=== PATIENT | male | born 1970 | race Caucasian/White ===

== ENCOUNTER 2016-08-22 18:03 | Inpatient (IN) | payer OTHER ==
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
--- NOTE | ~2016-08-22 | PN ---
Unit #: [id number] #: [id number] Patient: PALOMA ROMERO [id number] [facility] [address] [place] [address] [id number] I MR#: [id number] NAME: PALOMA ROMERO ROOM: P204 Age: 46 Sex: M Admission Date: 08/22/2016 : 1970 Attending Physician: Radha Benitez M.D. Admitting Physician: Radha Benitez M.D. Primary Care Physician: Ce Flood PROGRESS NOTES DATE August 25, 2016 DISCUSSION Mr. Romero is a 46-year-old white male, who was seen today and chart was reviewed and the case was discussed with the staff. He has been anxious, withdrawn, and rather seclusive to himself. Meanwhile, he has been cooperative with the treatment recommendations and he has been taking the medications and tolerating them fairly well with no reported side effects. MENTAL STATUS EXAMINATION Middle-aged white male, who was casually dressed with fair personal hygiene and appears to be in no acute distress or discomfort. The patient was awake and alert on interaction with intact orientation. His mood is anxious with a congruent affect. His speech is slow and goal-directed. He denies any suicidal or homicidal ideations. His insight and judgment remain significantly impaired. TREATMENT PLAN 1. We will continue him on his current medications and treatment protocol, and will monitor his response to the medications, and make further adjustments as needed. 2. We will continue to followup. Dictated by... Ce Corbett/carlos TD: 08/27/2016 07:43 JOB #: [id number] Unit #: [id number] #: [id number] Patient: PALOMA ROMERO PROGRESS NOTES X aRdha Benitez MD PROGRESS NOTE
--- NOTE | ~2016-08-22 | CO ---
Unit #: [id number] #: [id number] Patient: PALOMA ROMERO [id number] [facility] [address] [place] [address] [id number] MR#: [id number] NAME: PALOMA ROMERO ROOM: 74 Age: 46 Sex: M Admission Date: 08/22/2016 : 1970 Attending Physician: Radha Benitez M.D. Primary Care Physician: Jaime Watkins M.D. Consultation Date: 08/23/2016 CONSULTATION REPORT CRISTINO Harrsi is a 46-year-old with history of diabetes mellitus. Home medications include Glucophage 1000 mg b.i.d. and Glucotrol XL 10 mg b.i.d. We will continue both of these home medications and provide a constant carb diet. Dictated by... Candy Reyes P.A.-C. for Ce Agrawal/silvia TD: 08/25/2016 13:17 JOB #: [id number] CONSULTATION REPORT X Candy Reyes CONSULTATION REPORT
--- NOTE | ~2016-08-22 | PN ---
Unit #: [id number] #: [id number] Patient: PALOMA ROMERO [id number] [facility] [address] [place] [address] [id number] I MR#: [id number] NAME: PALOMA ROMERO ROOM: P204 Age: 46 Sex: M Admission Date: 08/22/2016 : 1970 Attending Physician: Radha Benitez M.D. Admitting Physician: Radha Benitez M.D. Primary Care Physician: Ce Flood PROGRESS NOTES DATE August 29, 2016 DISCUSSION Mr. Romero is a 46-year-old white male, who was seen today and chart was reviewed and the case was discussed with the staff. He has been anxious, withdrawn, but has not shown any agitation or irritability or behavioral problems and he has been cooperative with the treatment recommendations. He has been taking the medications and tolerating them fairly well with no reported side effects. MENTAL STATUS EXAMINATION Middle-aged white male, who was casually dressed with fair personal hygiene and appears to be in no acute distress or discomfort. He was awake and alert on interaction with intact orientation. His mood is anxious with a congruent affect. His speech is slow and goal-directed. He denies any suicidal or homicidal ideations, and also denies any auditory or visual hallucinations. His insight and judgment remain slightly impaired. TREATMENT PLAN We will continue him on his current medications and treatment protocol, and will monitor his response, and make further adjustments as needed. Dictated by... Ce Corbett/carlos TD: 08/30/2016 12:19 JOB #: [id number] Unit #: [id number] #: [id number] Patient: PALOMA ROMERO PROGRESS NOTES X Radha Benitez MD PROGRESS NOTE
--- NOTE | ~2016-08-22 | PN ---
Unit #: [id number] #: [id number] Patient: PALOMA ROMERO [id number] [facility] [address] [place] [address] [id number] I MR#: [id number] NAME: PALOMA ROMERO ROOM: P204 Age: 46 Sex: M Admission Date: 08/22/2016 : 1970 Attending Physician: Radha Benitez M.D. Admitting Physician: Radha Benitez M.D. Primary Care Physician: Ce Flood PROGRESS NOTES DATE August 28, 2016 DISCUSSION Mr. Romero is a 46-year-old white male, who was seen today and chart was reviewed and the case was discussed with the staff. He has been anxious, withdrawn, and rather seclusive to himself, and has been irritable and impulsive, and has been exhibiting bizarre behavior. Meanwhile, he has been taking the medications and tolerating them fairly well with no reported side effects. MENTAL STATUS EXAMINATION Middle-aged white male, who was casually dressed with fair personal hygiene and appears to be in no acute distress or discomfort. He was awake and alert with impaired attention and concentration. His mood is anxious with a congruent affect. His speech is slow and restricted in content. He denies any suicidal or homicidal ideations. His insight and judgment remain slightly impaired. TREATMENT PLAN 1. We will continue him on his current medications and treatment protocol, and will monitor his response to the medications, and make further adjustments as needed. 2. We will continue to followup. Dictated by... Ce Corbett/carlos TD: 08/29/2016 12:15 JOB #: [id number] Unit #: [id number] #: [id number] Patient: PALOMA ROMERO PROGRESS NOTES X Radha Benitez MD PROGRESS NOTE
--- NOTE | ~2016-08-22 | PN ---
Unit #: [id number] #: [id number] Patient: PALOMA ROMERO [id number] [facility] [address] [place] [address] [id number] I MR#: [id number] NAME: PALOMA ROMERO ROOM: 74 Age: 46 Sex: M Admission Date: 08/22/2016 : 1970 Attending Physician: Radha Benitez M.D. Admitting Physician: Radha Benitez M.D. Primary Care Physician: Ce Flood PROGRESS NOTES DATE 08/24/2016 DISCUSSION Mr. Romero is a 46-year-old white male who was seen today and chart was reviewed and case was discussed with the staff. He has been anxious, withdrawn and rather seclusive to himself. Meanwhile, he has been compliant with treatment recommendations and reports that he is wanting to go to long-term rehabilitation level of care. MENTAL STATUS EXAMINATION Middle-aged white male who was casually dressed with fair personal hygiene and appears to be in no acute distress or discomfort. He was awake and alert on interaction with intact orientation. His mood was anxious with congruent affect. He denies any suicidal or homicidal ideations and also denies any auditory or visual hallucinations. His insight and judgement remains slightly impaired. TREATMENT PLAN Will continue his current medications and treatment protocol. Will monitor his response to the medications and make further adjustments as needed. Dictated by... Ce Corbett/mendy TD: 08/24/2016 15:56 JOB #: [id number] LESLY PROGRESS NOTES X Radha Benitez MD PROGRESS NOTE
--- NOTE | ~2016-08-22 | HP ---
Unit #: [id number] #: [id number] Patient: STEVEN ROMERO [id number] [facility] [address] [place] [address] [id number] I MR#: [id number] NAME: STEVEN ROMERO ROOM: P174 Age: 46 Sex: M Admission Date: 08/22/2016 : 1970 Attending Physician: Radha Benitez M.D. Admitting Physician: Radha Benitez M.D. Primary Care Physician: Jaime Watkins M.D. HISTORY AND PHYSICAL Steven is a 46 year old admitted to [facility] with psychotic behavior. He was just discharged from this facility. The patient was seen and H and P dated 08/04/16 was reviewed. This is current. No changes. Please see H and P dated 08/04/16. Dictated by... Candy Reyes P.A.-C. for Ce Agrawal/mendy TD: 08/23/2016 18:33 JOB #: [id number] HISTORY AND PHYSICAL X Candy Reyes HISTORY AND PHYSICAL
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
--- NOTE | ~2016-08-22 | PN ---
Unit #: [id number] #: [id number] Patient: PALOMA ROMERO [id number] [facility] [address] [place] [address] [id number] I MR#: [id number] NAME: PALOMA ROMERO ROOM: P204 Age: 46 Sex: M Admission Date: 08/22/2016 : 1970 Attending Physician: Radha Benitez M.D. Admitting Physician: Radha Benitez M.D. Primary Care Physician: Ce Flood PROGRESS NOTES DATE OF SERVICE: 08/27/2016 SUBJECTIVE Mr. Romero is a 46-year-old white male, who was seen today and chart was reviewed and the case was discussed with the staff. He has been anxious, withdrawn, but has not shown any agitation or irritability, has been cooperative with the treatment recommendations and has been taking the medications, though has been exhibiting very bizarre behavior with significant paranoia, delusional behavior, and poor frustration tolerance. MENTAL STATUS EXAMINATION Middle-aged white male, who was casually dressed with a fair personal hygiene, appears to be in no acute distress or discomfort. He was awake and alert on interaction with intact orientation. His mood was anxious with congruent affect. His speech is slow and restricted. Thought process having some visual hallucination. Had flight of ideas and paranoid ideation and delusional behavior ideation. His insight and judgment remain significantly impaired. TREATMENT PLAN 1. We will continue him on his current medications and treatment protocol. We will monitor his response to the medications and make further adjustments as needed. 2. We will continue to follow up. Dictated by... Ce Corbett/silvia TD: 08/28/2016 05:26 JOB #: [id number] Unit #: [id number] #: [id number] Patient: PALOMA ROMERO PROGRESS NOTES Page 1 of 1 X Radha Benitez MD PROGRESS NOTE
--- NOTE | ~2016-08-22 | DS ---
Unit #: [id number] #: [id number] [facility]: [facility] [id number] [facility] [address] [place] [address] [id number] I MR#: [id number] NAME: PALOMA ROMERO ROOM: P204 Age: 46 Sex: M Admission Date: 08/22/2016 : 1970 Discharge Date: 08/30/2016 Attending Physician: Radha Benitez M.D. Primary Care Physician: Jaime Watkins M.D. DISCHARGE SUMMARY IDENTIFYING DATA Mr. Romero is a 46-year-old single white male who is a resident of [place], [place] and was brought to the hospital by [facility] [employer]. DISCHARGE DIAGNOSES Psychiatric: Major depressive disorder, recurrent, moderate, without psychotic features; alcohol dependence, moderate and acute withdrawals; opioid dependence, moderate and acute withdrawals; methamphetamine dependence, moderate. Medical: Hypertension, diabetes mellitus. Stressors: Moderate psychosocial stressors. HISTORY OF PRESENT ILLNESS Please see initial psychiatric evaluation for details. PAST PSYCHIATRIC HISTORY Please see initial psychiatric evaluation for details. PAST MEDICAL HISTORY Please see initial psychiatric evaluation for details. HOSPITAL COURSE The patient was admitted to the adult chemical dependency unit at [facility] and was oriented to the hospital environment. Routine p.r.n. medications were initiated, and he was started back on his home medications and detox protocol was initiated. He was started on medications, was placed for suicidal thoughts and was wanting to go to a long-term chemical dependency rehab level of care and the delinquency prevention social worker made refill, he was not accepted by any of the places and as such, it was decided that he will be discharged home and recommended ongoing outpatient chemical dependency rehabilitation level of care. DISCHARGE MEDICATIONS Prozac 20 mg a day for depression, Seroquel 200 mg at bedtime and 50 mg b.i.d. for mood disorder, and Wellbutrin XL 150 mg in the morning for depression. DISCHARGE CONDITION Stable. PROGNOSIS Fair. Unit #: [id number] #: [id number] Patient: PALOMA ROMERO Dictated by... Radha Benitez M.D. IAA/modl TD: 08/30/2016 06:59 JOB #: [id number] DISCHARGE SUMMARY X Radha Benitez MD DISCHARGE SUMMARY
[2016-08-24 10:22] LABS: AMPHETAMINE POS (NEG); BARBITURATES NEG (NEG); BENZODIAZEPINES POS (NEG); COCAINE NEG (NEG); MARIJUANA POS (NEG); OPIATES NEG (NEG); TRICYCLIC ANTIDEPRESSANTS POS (NEG); U METHADONE NEG (NEG)
== END 2016-08-30 13:30 | DRG 885 ==
LOC: P1E 18:03 → P2S 08-25 21:18
PROVIDERS: Psychiatry & Neurology Psychiatry
PROC: HZ2ZZZZ Detoxification Services for Substance Abuse Treatment (ICD-10-PCS; principal; 2016-08-22)
DX: F33.1 Major depressive disorder, recurrent, moderate (principal); F15.20 Other stimulant dependence, uncomplicated; I10 Essential (primary) hypertension; F10.239 Alcohol dependence with withdrawal, unspecified; F11.23 Opioid dependence with withdrawal; E11.9 Type 2 diabetes mellitus without complications; Z79.84 Long term (current) use of oral hypoglycemic drugs
CPT/HCPCS: 80307; 82947

== ENCOUNTER 2016-09-02 19:10 | Inpatient (IN) | payer OTHER ==
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
--- NOTE | ~2016-09-02 | PN ---
Unit #: [id number] #: [id number] Patient: PALOMA ROMERO [id number] [facility] [address] [place] [address] [id number] I MR#: [id number] NAME: PALOMA ROMERO ROOM: [facility] Age: 46 Sex: M Admission Date: 09/02/2016 : 1970 Attending Physician: Radha Benitez M.D. Admitting Physician: Radha Benitez M.D. Primary Care Physician: Ce Flood PROGRESS NOTES DATE OF SERVICE: 09/04/2016 SUBJECTIVE Mr. Romero is a 46-year-old white male who was seen today and chart was reviewed, and case was discussed with the staff. He reports doing fairly well and has been showing improvement in his depression and anxiety, and appears to be having a better day today. He has been taking medications and tolerating them fairly well. MENTAL STATUS EXAMINATION Middle-aged white male who was casually dressed with a fair personal hygiene, appears to be in no acute distress or discomfort. He was awake and alert on interaction with intact orientation. His mood was anxious with a congruent affect. He denies any suicidal or homicidal ideations, and also denies any auditory or visual hallucinations. His insight and judgment remain slightly impaired. TREATMENT PLAN We will continue him on his current medications and treatment protocol. We will monitor his response to the medications and make further adjustments as needed. Dictated by... Ce Corbett/silvia TD: 09/06/2016 07:41 JOB #: [id number] [facility] PROGRESS NOTES X Radha Benitez MD PROGRESS NOTE
--- NOTE | ~2016-09-02 | HP ---
Unit #: [id number] #: [id number] Patient: STEVEN ROMERO [id number] [place] [address] [id number] I MR#: [id number] NAME: STEVEN ROMERO ROOM: P265 Age: 46 Sex: M Admission Date: 09/02/2016 : 1970 Attending Physician: Radha Benitez M.D. Admitting Physician: Radha Benitez M.D. Primary Care Physician: Jaime Watkins M.D. HISTORY AND PHYSICAL HISTORY OF PRESENT ILLNESS Steven is a 46 year old admitted to [address] [place] [address] with psychotic behavior. He has other admissions to this facility. PAST MEDICAL HISTORY 1. High blood pressure 2. Diabetes mellitus PAST SURGICAL HISTORY Oral ALLERGIES No known drug allergies. SOCIAL HISTORY He denies cigarettes and alcohol. Admits to using cocaine on occasion. FAMILY HISTORY Medically noncontributory. REVIEW OF SYSTEMS CONSTITUTIONAL: No fever or chills. HEENT: Denies any sore throat, ear pain or runny nose. CARDIOVASCULAR: Denies chest pain, irregular heart rhythm or palpitations. CHEST: Denies shortness of breath or cough. No hemoptysis. GASTROINTESTINAL: Denies nausea, vomiting, diarrhea or chronic constipation. ENDOCRINE: Denies history of increased thirst or urination. No recent significant weight loss or gain. GENITOURINARY: Denies dysuria, frequency, or hematuria. SKIN: Denies any rashes. HEMATOLOGIC: Denies history of increased bleeding or bruising. MUSCULOSKELETAL: Denies any hot, swollen joints. No generalized muscle pain. NEUROLOGIC: Denies problems with vision or speech. No frequent, severe headaches. No numbness, tingling or weakness in any extremities. Denies loss of bladder or bowel control. CURRENT MEDICATIONS 1. Milk of Magnesia p.r.n. 2. Maalox p.r.n. 3. Tylenol p.r.n. Unit #: [id number] #: [id number] Patient: STEVEN ROMERO 4. Seroquel 200 mg q.h.s. 5. Neurontin 800 mg t.i.d. 6. Glucotrol 10 mg b.i.d. 7. Norvasc 10 mg daily 8. Wellbutrin XL 150 mg daily 9. Seroquel 50 mg b.i.d. 10. Prozac 20 mg daily PHYSICAL EXAMINATION GENERAL: Alert, well-nourished, in no apparent distress. VITAL SIGNS: Blood pressure 138/82, heart rate 100, respirations 16, temperature 98.6. WEIGHT: 157 pounds. HEIGHT: 5'8". SKIN: Warm and dry without rash or lesion. HEENT: Normocephalic. TMs not viewed. Oral and nasal passages clear. Conjunctivae clear. Pupils equal, round and reactive to light and accommodation. Extraocular movements intact. NECK: Supple without lymphadenopathy or thyromegaly. HEART: Regular rate and rhythm without murmur. LUNGS: Clear. ABDOMEN: Soft, nontender. : Not done. EXTREMITIES: No evidence of cyanosis, clubbing or edema. Moves all extremities without focal deficit. NEUROLOGICAL: Grossly within normal limits. Cranial Nerves: II: Visual braga are intact. III, IV AND : Extraocular movements are intact. Pupils are equal, round and reactive to light. V: Facial sensation is grossly normal. VII: Facial movements and expression are normal. VIII: Auditory acuity grossly intact. IX, X: Uvula is midline. Phonation is normal. XI: Patient shrugs shoulders and turns head normally. XII: Tongue protrudes in the midline. Sensory and Motor Function: Sensory and motor sensation is grossly normal. Motor: moves all extremities well. Coordination: Gait is normal. Deep Tendon Reflexes: Intact. IMPRESSION Psychiatric admission RECOMMENDATIONS PSYCHIATRIC: Per psychiatrist. MEDICAL: I see no contraindications to participating in facility's activities. MEDICAL PROGNOSIS Good. MEDICAL CONDITION Stable. Dictated by... Candy Reyes P.A.-C. for Unit #: [id number] #: [id number] Patient: STEVEN ROMERO Ce Agrawal/pb TD: 09/03/2016 23:58 JOB #: [id number] HISTORY AND PHYSICAL X Candy Reyes HISTORY AND PHYSICAL
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
== END 2016-09-05 14:00 | DRG 885 ==
LOC: P2L 19:10
PROC: HZ2ZZZZ Detoxification Services for Substance Abuse Treatment (ICD-10-PCS; principal; 2016-09-02)
DX: F33.1 Major depressive disorder, recurrent, moderate (principal); F11.20 Opioid dependence, uncomplicated; I10 Essential (primary) hypertension; F14.20 Cocaine dependence, uncomplicated; F15.20 Other stimulant dependence, uncomplicated; F10.20 Alcohol dependence, uncomplicated; E11.9 Type 2 diabetes mellitus without complications
CPT/HCPCS: 82947

== ENCOUNTER 2016-09-05 21:31 | Inpatient (IN) | payer OTHER ==
--- NOTE | ~2016-09-05 | PN ---
Unit #: [id number] #: [id number] Patient: STEVEN ROMERO [id number] [facility] [address] [place] [address] [id number] I MR#: [id number] NAME: STEVEN ROMERO ROOM: 30 Age: 46 Sex: M Admission Date: 09/05/2016 : 1970 Attending Physician: Galindo Corea M.D. Admitting Physician: Galindo Corea M.D. Primary Care Physician: Ce Flood PROGRESS NOTES DATE OF SERVICE: 09/07/2016 DISCUSSION Steven Romero is a 46-year-old male, seen on 09/07/2016. The patient interviewed, chart reviewed, and obtained information from nursing staff. The patient was compliant and cooperative. Mood, sad and dysphoric. The patient continues to be isolative and guarded. REVIEW OF SYSTEMS Complete review of systems unremarkable. MENTAL STATUS EXAMINATION General appearance, the patient dressed casually. Attention span and concentration, fair. Oriented in place and person. Mood and affect, sad and dysphoric. Speech, monotone. Thought process, concrete. The patient denied any thoughts of harming self or others or any psychotic symptom. Recent and remote memory, poor. Insight and judgment, poor. DIAGNOSIS Mood disorder, not otherwise specified. ASSESSMENT/PLAN Advised to continue with current medication and therapeutic protocol. We will monitor response to medication and make further adjustment of medication. Dictated by... Ce Batista/silvia TD: 09/08/2016 15:09 JOB #: [id number] Unit #: [id number] #: [id number] Patient: STEVEN ROMERO LESLY PROGRESS NOTES X Galindo Corea MD PROGRESS NOTE
--- NOTE | ~2016-09-05 | HP ---
Unit #: [id number] #: [id number] Patient: STEVEN ROMERO [id number] [facility] [address] [place] [address] [id number] MR#: [id number] NAME: STEVEN ROMERO ROOM: P130 Age: 46 Sex: M Admission Date: 09/05/2016 : 1970 Attending Physician: Galindo Corea M.D. Admitting Physician: Galindo Corea M.D. Primary Care Physician: Jaime Watkins M.D. HISTORY AND PHYSICAL Steven is a 46 year old admitted to [address] [place] [address] with depression and verbalizing wanting to hurt himself. He was just discharged from this facility less than 24 hours ago. The patient was seen and H and P dated 09/02/16 was reviewed. This is current. No changes except to add the diagnosis, history of malingering. Please see H and P dated 09/02/16 for complete history and physical exam. Dictated by... Candy Reyes P.A.-C. for Ce Agrawal/mendy TD: 09/06/2016 18:39 JOB #: [id number] HISTORY AND PHYSICAL X Candy Reyes HISTORY AND PHYSICAL
--- NOTE | ~2016-09-05 | PN ---
Unit #: [id number] #: [id number] Patient: STEVEN ROMERO [id number] [facility] [address] [place] [address] [id number] I MR#: [id number] NAME: STEVEN ROMERO ROOM: 30 Age: 46 Sex: M Admission Date: 09/05/2016 : 1970 Attending Physician: Galindo Corea M.D. Admitting Physician: Galindo Corea M.D. Primary Care Physician: Ce Flood PROGRESS NOTES DATE OF SERVICE: 09/08/2016 DISCUSSION Steven Romero is a 46-year-old male, seen on 09/08/2016. The patient interviewed, chart reviewed, and obtained information from nursing staff. The patient was compliant and cooperative. Mood was labile. No aggressive behavior. REVIEW OF SYSTEMS Complete review of systems unremarkable. MENTAL STATUS EXAMINATION General appearance, the patient is dressed casually. Attention span and concentration, fair. Oriented in place and person. Mood and affect, labile. Speech, rapid. Thought process, circumstantial. Denied any thoughts of harming self or others or any psychotic symptom. Recent and remote memory, poor. Insight and judgment, poor. DIAGNOSIS Mood disorder, not otherwise specified. ASSESSMENT AND PLAN Advised to continue with current medication and therapeutic protocol. We will monitor response to medication and make further adjustment of medication. Dictated by... Ce Batista/silvia TD: 09/10/2016 06:29 JOB #: [id number] Unit #: [id number] #: [id number] Patient: STEVEN ROMERO PROGRESS NOTES X Galindo Corea MD PROGRESS NOTE
--- NOTE | ~2016-09-05 | DS ---
Unit #: [id number] #: [id number] Patient: PALOMA ROMERO [id number] [place] [address] [id number] I MR#: [id number] NAME: PALOMA ROMERO ROOM: 30 Age: 46 Sex: M Admission Date: 09/05/2016 : 1970 Discharge Date: 09/10/2016 Attending Physician: Galindo Corea M.D. Primary Care Physician: Jaime Watkins M.D. DISCHARGE SUMMARY REASON FOR ADMISSION Depression and suicidal ideation. DIAGNOSTIC STUDIES LABORATORY RESULTS: Remarkable for urine drug screen positive for benzodiazepine, amphetamine, and marijuana. HOSPITAL COURSE The patient was admitted to inpatient unit on 09/05/2016 and discharged on 09/10/2016. The patient was treated on the inpatient unit with medication management, structured milieu, psychoeducation, psychotherapy, and expressive therapy. The patient responded well with the above modalities of treatment. Subsequently, the patient was discharged with a plan to follow up in outpatient program. DISCHARGE MEDICATIONS Prozac 20 mg daily for mood symptom, Seroquel 50 mg in the morning and 4:00 p.m. and Seroquel 200 mg at bedtime for mood and psychosis, Wellbutrin XL 150 mg in the morning for depression, Neurontin 800 mg t.i.d. for anxiety, glipizide XL 10 mg daily before meals for diabetes, Norvasc 10 mg daily for blood pressure, Haldol 5 mg b.i.d. for psychosis, and Cogentin 1 mg b.i.d. for EPS symptom. The patient was discharged on two antipsychotics as the patient did not respond with one. The patient was tried on Seroquel, Haldol, and Risperdal in the past. The patient is not a candidate for Clozaril as the patient does not want repeated blood test. Plan is to taper off Haldol once the patient is stable for 6 months. DISCHARGE DIAGNOSES Psychiatric: 1. Major depressive disorder, recurrent, severe. 2. Rule out schizoaffective disorder, bipolar type. 3. Sedative-hypnotic use disorder, severe. 4. Amphetamine use disorder, moderate. 5. Cannabis abuse disorder, moderate. Secondary diagnosis: Deferred. Medical diagnoses: Hypertension, diabetes. Stressors: Psychosocial stressors. DISCHARGE INSTRUCTIONS The patient is to follow up in outpatient clinic as per social security benefits interviewer. Unit #: [id number] #: [id number] Patient: PALOMA ROMERO CONDITION ON DISCHARGE The patient was pleasant and cooperative. Denied any psychotic symptom or any suicidal ideation. PROGNOSIS Guarded. DIET AND ACTIVITY As tolerated. Dictated by... Ce Batista/silvia TD: 09/10/2016 21:45 JOB #: [id number] DISCHARGE SUMMARY X Galindo Corea MD X DISCHARGE SUMMARY
--- NOTE | ~2016-09-05 | CO ---
Unit #: [id number] #: [id number] Patient: STEVEN ROMERO [id number] [place] [address] [id number] I MR#: [id number] NAME: STEVEN ROMERO ROOM: P130 Age: 46 Sex: M Admission Date: 09/05/2016 : 1970 Attending Physician: Galindo Corea M.D. Primary Care Physician: Jaime Watkins M.D. Consultation Date: 09/03/2016 CONSULTATION REPORT SUBJECTIVE Steven is a 46-year-old with history of diabetes mellitus. Home medications include Glucotrol XL 10 mg b.i.d., although he reports he is noncompliant with this medication. During this admission, we will maintain him on his home medication of Glucotrol XL 10 mg b.i.d. He knows he needs to follow up with his primary care physician. Dictated by... Candy Reyes P.A.-C. for Ce Agrawal/silvia TD: 09/08/2016 02:47 JOB #: [id number] CONSULTATION REPORT X Candy Reyes CONSULTATION REPORT
--- NOTE | ~2016-09-05 | PA ---
Unit #: [id number] #: [id number] Patient: STEVEN ROMERO [id number] [facility] [address] [place] [address] [id number] I MR#: [id number] NAME: STEVEN ROMERO ROOM: 30 Age: 46 Sex: M Admission Date: 09/05/2016 : 1970 Date of Assessment: 09/05/2016 Attending Physician: Galindo Corea M.D. Admitting Physician: Galindo Corea M.D. Primary Care Physician: Jaime Watkins M.D. PSYCHIATRIC ASSESSMENT DATE OF SERVICE 09/05/2016. INFORMANTS The patient reliability, fair to poor; chart reliability, good. CHIEF COMPLAINT Depression and suicidal ideation. HISTORY OF PRESENT ILLNESS Steven Romero is a 46-year-old male, seen on 09/05/2016. The patient has a history of previous admission, multiple, on 08/03/2016, 08/14/2016, 08/22/2016, and 09/02/2016. The patient reported that he was recently discharged from the hospital, but he was not ready. The patient reported suicidal ideation with multiple plans. [facility] and was not ready to leave. The patient denied any substance abuse. The patient reported last use of any drugs was on 08/22/2016. Denied any homicidal ideation. The patient reported that he almost from opioids and will be going to rehab. The patient needed inpatient admission at this time for psychiatric stabilization. PAST PSYCHIATRIC HISTORY Remarkable for history of bipolar disorder and schizoaffective disorder. [facility], [facility], and [facility] in the past. FAMILY HISTORY AND SOCIAL HISTORY Unremarkable. Poor support system. No history of any abuse. MEDICAL HISTORY Remarkable for type 2 diabetes and hypertension. Musculoskeletal; muscle strength and tone, no atrophy or abnormal movement. Gait normal. MEDICATION HISTORY The patient is on Seroquel, Wellbutrin, and Neurontin. ALLERGIES No known drug allergies. SUBSTANCE ABUSE HISTORY The patient reported alcohol use, age of onset 16; marijuana, age of onset 15; crack cocaine, age of onset 20; opioid, age of onset 37; and methamphetamine, age of onset 37. The patient denied any recent use of Unit #: [id number] #: [id number] Patient: CYN ROMEROOPHER drugs. REVIEW OF SYSTEMS HEENT: Eyes, clear. Ears, nose, mouth, and throat; clear. CARDIOVASCULAR: Unremarkable. RESPIRATORY: Unremarkable. GI: Unremarkable. : Unremarkable. SKIN: Unremarkable. LYMPH NODE: Unremarkable. NEUROLOGIC: Unremarkable. ENDOCRINE: Unremarkable. HEMATOLOGIC: Unremarkable. ALLERGIC/IMMUNOLOGIC: Unremarkable. MUSCULOSKELETAL: Muscle strength and tone, no atrophy or abnormal movement. Gait normal. MENTAL STATUS EXAMINATION VITAL SIGNS: Temperature 97.7, pulse 77, respirations 16, oxygen saturation 98, and blood pressure 143/82. Height 5 feet 8 inches and weight 165 pounds. GENERAL APPEARANCE: The patient dressed casually. The patient did not show any facial deformity. PSYCHIATRIC EXAMINATION Description of speech, slow in volume and rate. Description of thought process, circumstantial. Description of association, circumstantial. Description of abnormal psychotic thinking; guarded, paranoid, mood lability, suicidal ideation, no recent substance abuse. Description of the patient's judgment: Concerning everyday activity, poor. Social situation, poor. Concerning psychiatric condition, poor. Complete mental status examination; oriented in time, place, and person. Recent and remote memory, fair. Attention span and concentration, poor. Language; able to name object, repeat phrases. Fund of knowledge, fair. Vocabulary, fair. Mood and affect, sad and dysphoric. Insight and judgment were fair to poor. ASSETS AND LIABILITIES Assets; the patient is articulate, able to take care of his ADL. Liability; history of depression, substance abuse, suicidal ideation. ADMITTING DIAGNOSES Psychiatric: 1. Major depressive disorder, recurrent, severe. 2. Rule out schizoaffective disorder, bipolar type. 3. History of polysubstance abuse. Secondary diagnosis: Deferred. Medical diagnoses: Hypertension, diabetes. Stressors: Psychosocial stressors. PSYCHIATRIC PLAN, TREATMENT GOAL, AND DISCHARGE PLAN 1. Advised to admit the patient on the inpatient unit. Provide safe, supportive, and structured environment. 2. Ordered UA and UDS. 3. Advised to continue with his medications. Continue with Norvasc 10 mg Unit #: [id number] #: [id number] Patient: CYN ROMEROOPHER daily, Wellbutrin XL 150 mg daily, Seroquel 50 mg in the morning and noon and 200 mg at bedtime, Prozac 20 mg daily, and Glucotrol XL 10 mg b.i.d. The patient is to start Haldol 5 mg b.i.d. and Cogentin 1 mg b.i.d. for psychotic symptom. 4. Treatment goal is to attain euthymic mood, gain insight into his problem, and learn coping skills. The patient is to attend all the programing on the inpatient unit. 5. Discharge plan: Plan is to stabilize the patient and consider followup in outpatient program. ESTIMATED LENGTH OF STAY 3 to 5 days. Dictated by... Ce Batista/silvia TD: 09/06/2016 23:32 JOB #: [id number] PSYCHIATRIC ASSESSMENT X Galindo Corea MD PSYCHIATRIC ASSESSMENT
--- NOTE | ~2016-09-05 | CO ---
Unit #: [id number] #: [id number] Patient: STEVEN ROMERO [id number] [place] [address] [id number] MR#: [id number] NAME: STEVEN ROMERO ROOM: P130 Age: 46 Sex: M Admission Date: 09/05/2016 : 1970 Attending Physician: Galindo Corea M.D. Primary Care Physician: Jaime Watkins M.D. Consultation Date: 09/06/2016 CONSULTATION REPORT SUBJECTIVE Steven is a 46-year-old who reported to nursing staff that he has a history of seizures and is currently having some rectal bleeding. He has had numerous admissions to this facility and has never given history of any seizure disorder. He further tells me that any rectal bleeding that he might have had has resolved. Staff can let us know if there is anything else we can do. Again, Steven has never reported any history of seizure disorder. Dictated by... Candy Reyes P.A.-C. for Ce Agrawal/silvia TD: 09/08/2016 02:45 JOB #: [id number] CONSULTATION REPORT X Candy Reyes CONSULTATION REPORT
--- NOTE | ~2016-09-05 | PN ---
Unit #: [id number] #: [id number] Patient: STEVEN ROMERO [id number] [facility] [address] [place] [address] [id number] MR#: [id number] NAME: STEVEN ROMERO ROOM: 30 Age: 46 Sex: M Admission Date: 09/05/2016 : 1970 Attending Physician: Galindo Corea M.D. Admitting Physician: Galindo Corea M.D. Primary Care Physician: Ce Flood PROGRESS NOTES DATE 09/09/2016 DISCUSSION Steven Romero is a 46-year-old male, seen on 09/09/2016. The patient interviewed, chart reviewed, and obtained information from the nursing staff. The patient was compliant and cooperative, able to maintain safe behavior. REVIEW OF SYSTEMS Complete review of systems unremarkable. MENTAL STATUS EXAMINATION General appearance: Patient casually dressed. Attention span and concentration, fair. Oriented to place and person. Mood and affect, sad and dysphoric. Speech, monotone. Thought process, concrete. Association, the patient denied any thoughts of harming self or others or any psychotic symptoms. Recent and remote memory, poor. Insight and judgment, poor. DIAGNOSIS Mood disorder, NOS. ASSESSMENT/PLAN Advised to continue with the current medication and therapeutic protocol and will monitor response to medication, and make further adjustment of medication. Dictated by... Ce Batista/carlos TD: 09/10/2016 08:52 JOB #: [id number] Unit #: [id number] #: [id number] Patient: STEVEN ROMERO PROGRESS NOTES X Galindo Corea MD PROGRESS NOTE
== END 2016-09-10 11:24 | disposition home or self-care (01) | DRG 885 ==
LOC: P1S 21:31
DX: F33.2 Major depressive disorder, recurrent severe without psychotic features (principal); E11.9 Type 2 diabetes mellitus without complications; R45.851 Suicidal ideations; K62.5 Hemorrhage of anus and rectum; F25.1 Schizoaffective disorder, depressive type; I10 Essential (primary) hypertension; F39 Unspecified mood [affective] disorder

== ENCOUNTER 2016-09-27 18:03 | Inpatient (IN) | payer OTHER ==
--- NOTE | ~2016-09-27 | PN ---
Unit #: [id number] #: [id number] Patient: STEVEN ROMERO [id number] [facility] [address] [place] [address] [id number] MR#: [id number] NAME: STEVEN ROMERO ROOM: P122 Age: 46 Sex: M Admission Date: 09/27/2016 : 1970 Attending Physician: Galindo Corea M.D. Admitting Physician: Galindo Corea M.D. Primary Care Physician: Ce Flood PROGRESS NOTES DATE OF SERVICE 09/28/2016 DISCUSSION Steven Romero is a 46-year-old male seen on 09/28/2016. Patient interviewed, chart reviewed, and obtained information from nursing staff. Patient was compliant, cooperative, withdrawn, isolative, and guarded. No aggressive behavior, but still having suicidal ideation. REVIEW OF SYSTEMS Complete review of systems unremarkable. MENTAL STATUS EXAMINATION GENERAL APPEARANCE: Patient dressed casually. ATTENTION SPAN AND CONCENTRATION: Poor. ORIENTATION: Oriented in place and person. MOOD AND AFFECT: Sad, dysphoric, flat. SPEECH: Monotone. THOUGHT PROCESS: [place]. Patient reported having suicidal ideation. Guarded, paranoid, and isolative. RECENT AND REMOTE MEMORY: Poor. INSIGHT AND JUDGEMENT: Poor. DIAGNOSES Schizoaffective disorder, bipolar type. ASSESSMENT/PLAN Advised to continue with current medication and therapeutic protocol. If needed, consider further adjustment of medication. Dictated by... Ce Batista/ulises TD: 10/02/2016 06:31 JOB #: [id number] Unit #: [id number] #: [id number] Patient: STEVEN ROMERO PROGRESS NOTES Page 1 of 1 X Galindo Corea MD X PROGRESS NOTE
--- NOTE | ~2016-09-27 | DS ---
Unit #: [id number] #: [id number] Patient: PALOMA ROMERO [id number] [facility] [address] [place] [address] [id number] MR#: [id number] NAME: PALOMA ROMERO ROOM: [facility] Age: 46 Sex: M Admission Date: 09/27/2016 : 1970 Discharge Date: 10/01/2016 Attending Physician: Galindo Corea M.D. Primary Care Physician: Jaime Watkins M.D. DISCHARGE SUMMARY REASON FOR ADMISSION Depression. DIAGNOSTIC STUDIES LABORATORY RESULTS: Urine drug screen positive for benzodiazepine, amphetamine, marijuana. HOSPITAL COURSE The patient was admitted to inpatient unit on 09/27/2016 and discharged on 10/01/2016. The patient was treated on the inpatient unit with group therapy, individual therapy, medication management. The patient received maximum benefit from the treatment. Subsequently, the patient was discharged with a plan to follow up in outpatient program. DISCHARGE MEDICATIONS Glucotrol 10 mg b.i.d. for diabetes, Haldol 10 mg at bedtime for psychosis, Seroquel 300 mg at bedtime for psychosis, Norvasc 10 mg daily for hypertension, Cogentin 1 mg b.i.d. for EPS symptom, Wellbutrin XL 150 mg daily for depression, Prozac 20 mg daily for depression, Neurontin 800 mg t.i.d. for pain. DISCHARGE DIAGNOSES Psychiatric: Schizoaffective disorder, bipolar type, F25.9; history of polysubstance abuse. Secondary diagnosis: Deferred. Medical diagnoses: Hypertension and diabetes. Stressors: Psychosocial stressors. DISCHARGE INSTRUCTIONS The patient to follow up in outpatient clinic as per delinquency prevention social worker. CONDITION ON DISCHARGE The patient was pleasant and cooperative. Denied any psychotic symptom or any suicidal ideation. PROGNOSIS Guarded. DIET AND ACTIVITY As tolerated. Unit #: [id number] #: [id number] Patient: PALOMA ROMERO Dictated by... Galindo Corea M.D. SZC/sharonal TD: 10/02/2016 01:23 JOB #: [id number] DISCHARGE SUMMARY Page 1 of 1 X Galindo Corea MD DISCHARGE SUMMARY
--- NOTE | ~2016-09-27 | PN ---
Unit #: [id number] #: [id number] Patient: STEVEN ROMERO [id number] [facility] [address] [place] [address] [id number] I MR#: [id number] NAME: STEVEN ROMERO ROOM: [facility] Age: 46 Sex: M Admission Date: 09/27/2016 : 1970 Attending Physician: Galindo Corea M.D. Admitting Physician: Galindo Corea M.D. Primary Care Physician: Ce Flood PROGRESS NOTES DATE OF SERVICE: 09/30/2016 DISCUSSION Steven Romero is a 46-year-old male. The patient interviewed, chart reviewed, and obtained information from nursing staff. The patient was compliant and cooperative. Mood is sad, dysphoric, flat affect, guarded. The patient was able to maintain safe behavior. No aggressive behavior. Tolerating medication fairly well. Easily redirectable, but still guarded and paranoid. REVIEW OF SYSTEMS Complete review of systems unremarkable. MENTAL STATUS EXAMINATION General appearance, the patient dressed casually. Attention span and concentration, fair. Oriented in time, place, and person. Mood and affect were sad and dysphoric. Speech, monotone. Thought process, concrete. The patient denied any thoughts of harming self or others or any psychotic symptom. Recent and remote memory, poor. Insight and judgment, poor. DIAGNOSES 1. Bipolar mood disorder, not otherwise specified. 2. Polysubstance abuse. ASSESSMENT AND PLAN Advised to continue with current medication and therapeutic protocol. Plan to consider discharge next week with a plan to follow up in an outpatient program. Dictated by... Ce Batista/silvia TD: 10/02/2016 01:27 JOB #: [id number] Unit #: [id number] #: [id number] Patient: STEVEN ROMERO PROGRESS NOTES Page 1 of 1 X Galindo Corea MD PROGRESS NOTE
--- NOTE | ~2016-09-27 | HP ---
Unit #: [id number] #: [id number] Patient: STEVEN ROMERO [id number] [facility] [address] [place] [address] [id number] MR#: [id number] NAME: STEVEN ROMERO ROOM: P130 Age: 46 Sex: M Admission Date: 09/27/2016 : 1970 Attending Physician: Galindo Corea M.D. Admitting Physician: Galindo Corea M.D. Primary Care Physician: Jaime Watkins M.D. HISTORY AND PHYSICAL Steven is a 46 year old admitted to [address] [place] [address] with psychotic behavior. He has had numerous admissions to this facility for treatment of the same. Patient was seen and H and P dated 09/02/16 was reviewed. This is current. No changes. Please see H and P dated 09/02/16. Dictated by... Candy Reyes P.A.-C. for Ce Agrawal/mendy TD: 09/28/2016 17:31 JOB #: [id number] HISTORY AND PHYSICAL Page 1 of 1 X Candy Reyes HISTORY AND PHYSICAL
--- NOTE | ~2016-09-27 | PA ---
Unit #: [id number] #: [id number] Patient: STEVEN ROMERO [id number] [place] [address] [id number] I MR#: [id number] NAME: STEVEN ROMERO ROOM: 30 Age: 46 Sex: M Admission Date: 09/27/2016 : 1970 Date of Assessment: Attending Physician: Galindo Corea M.D. Admitting Physician: Galindo Corea M.D. Primary Care Physician: Jaime Watkins M.D. PSYCHIATRIC ASSESSMENT INFORMANTS The patient reliability, fair informant and chart reliability, good. CHIEF COMPLAINT Suicidal ideation. HISTORY OF PRESENT ILLNESS Mr. Steven Romero is a 46-year-old male, well known to this facility from his previous admission. The patient was last admitted on 09/05/2016. The patient has a history of multiple treatment at [facility], [facility], [facility], [facility], and [facility]. The patient currently homeless. The patient presented with suicidal ideation with a plan to jump off the bridge. The patient reported hearing four voices. The patient also reported having thought disorder, paranoia, and disorganized thought process. The patient reported seeing a bus and also concerned about beating someone up. The patient was dismissed from [facility] after the incident over a week and was at [facility] and has not been taking his antipsychotic medication for the last several days and appears to be decompensating and needing inpatient admission at this time for psychiatric stabilization. PAST PSYCHIATRIC HISTORY Remarkable for history of multiple treatment as mentioned above. FAMILY HISTORY AND SOCIAL HISTORY Unremarkable. No history of any abuse or legal charges. MEDICAL HISTORY Remarkable for history of type 2 diabetes and hypertension. Musculoskeletal; muscle strength and tone, no atrophy or abnormal movement. Gait normal. MEDICATION HISTORY The patient is on Seroquel, Wellbutrin, and Neurontin. ALLERGIES No known drug allergies. SUBSTANCE ABUSE HISTORY History of marijuana abuse, opioid abuse, and crack cocaine abuse. REVIEW OF SYSTEMS HEENT: Eyes, clear. Ears, nose, mouth, and throat; clear. Unit #: [id number] #: [id number] Patient: STEVEN ROMERO CARDIOVASCULAR: Unremarkable. RESPIRATORY: Unremarkable. GI: Unremarkable. : Unremarkable. SKIN: Unremarkable. LYMPH NODE: Unremarkable. NEUROLOGIC: Unremarkable. ENDOCRINE: Unremarkable. HEMATOLOGIC: Unremarkable. ALLERGIC/IMMUNOLOGIC: Unremarkable. MUSCULOSKELETAL: Muscle strength and tone, no atrophy or abnormal movement. Gait normal. MENTAL STATUS EXAMINATION CONSTITUTIONAL: Measurement of vital signs; temperature 97.5, heart rate 84, respiratory rate 18, blood pressure 143/83, oxygen saturation 98%, height 5 feet 8 inches, and weight 171 pounds. GENERAL APPEARANCE: The patient dressed casually. Hygiene and grooming, poor. The patient did not show any facial deformity. PSYCHIATRIC EXAMINATION Description of speech, slow in volume and rate. Description of thought process, circumstantial. Description of association, guarded and paranoid. Description of abnormal psychotic thinking: Guarded; paranoid; hallucination, auditory hallucination and command hallucination; paranoia; delusions; suicidal ideation; and substance abuse. Description of the patient's judgment: Concerning everyday activity, poor. Social situation, poor. Concerning psychiatric condition, poor. Complete mental status examination; oriented in time, place, and person. Recent and remote memory, fair. Attention span and concentration, poor. Language, able to name object and repeat phrases. Fund of knowledge, poor. Vocabulary, poor. Mood and affect, sad and dysphoric. Insight and judgment, fair to poor. ASSETS AND LIABILITIES Assets, the patient is articulate and able to take care of his ADL. Liability, history of depression and psychosis. ADMITTING DIAGNOSES Psychiatric: Schizoaffective disorder, bipolar type, F25.9 and history of polysubstance abuse. Secondary diagnosis: Deferred. Medical diagnoses: Hypertension and diabetes. Stressors: Psychosocial stressors. PSYCHIATRIC PLAN AND TREATMENT GOAL AND DISCHARGE PLAN 1. Advised to admit the patient on the inpatient unit. Provide safe, supportive, and structured environment. 2. Ordered labs, UA and UDS. 3. Advised to continue with current medication. If needed, consider further adjustment of medication. The patient to continue with Haldol 5 mg b.i.d., Neurontin 800 mg t.i.d., Prozac 20 mg daily, Wellbutrin XL 150 mg daily, Cogentin 1 mg b.i.d., Norvasc 10 mg daily, Glucotrol XL 10 mg b.i.d., and Seroquel 200 mg at bedtime. The patient to attend all the Unit #: [id number] #: [id number] Patient: STEVEN ROMERO programing, group therapy, and individual therapy. If needed, consider further adjustment of medication. TREATMENT GOAL To attain euthymic mood, gain insight into his problem, and learn coping skills. DISCHARGE PLAN Plan to stabilize the patient and consider followup in outpatient program. ESTIMATED LENGTH OF STAY 3 to 5 days. Dictated by... Ce Batista/silvia TD: 09/28/2016 18:19 JOB #: [id number] PSYCHIATRIC ASSESSMENT Page 1 of 1 X Galindo Corea MD X PSYCHIATRIC ASSESSMENT
--- NOTE | ~2016-09-27 | PN ---
Unit #: [id number] #: [id number] Patient: STEVEN ROMERO [id number] [facility] [address] [place] [address] [id number] MR#: [id number] NAME: STEVEN ROMERO ROOM: P122 Age: 46 Sex: M Admission Date: 09/27/2016 : 1970 Attending Physician: Galindo Corea M.D. Admitting Physician: Galindo Corea M.D. Primary Care Physician: Jaime Watkins M.D. [facility] PROGRESS NOTES DATE 09/29/2016 DISCUSSION Steven Romero is a 46-year-old male seen on 09/29/2016. Patient interviewed. Chart reviewed. Obtained information from nursing staff. Patient was compliant, cooperative, redirectable but mood sad, dysphoric, flat affect, isolative, guarded, paranoid. Patient reports still having suicidal thoughts, unable to contract for safety at this time if discharged today. Vital signs 98.3, 78, 139/83. Patient continues to be seclusive, isolative, guarded. Complete review of system unremarkable. MENTAL STATUS EXAMINATION General appearance, patient dressed casually. Hygiene and grooming fair to poor. Mood and affect sad, depressed, flat. Speech monotone. Thought process circumstantial, guarded, having suicidal ideation, unable to contract for safety if discharged today but able to contract for safety on the unit, guarded, paranoid. Recent and remote memory poor. Insight and judgement poor. DIAGNOSES 1. Schizoaffective disorder, bipolar type. 2. Polysubstance abuse. ASSESSMENT/PLAN Advised to continue with current medication and therapeutic protocol. Will monitor response to medication and make further adjustment of medication. Dictated by... Ce Batista/mendy TD: 10/02/2016 16:49 JOB #: [id number] Unit #: [id number] #: [id number] Patient: STEVEN ROMERO PROGRESS NOTES Page 1 of 1 X Galindo Corea MD X PROGRESS NOTE
[2016-09-28 10:01] LABS: ALBUMIN SERUM 3.8 g/dL (3.5-5.0); BILIRUBIN,TOTAL 0.9 mg/dL (0.2-2.0); BUN/CREATININE RATIO 15.45; CALCIUM SERUM 8.9 mg/dL (8.4-10.2); CREATININE SERUM 1.1 mg/dL (0.6-1.4); GLOM FILT RATE Estimated 80.7 mL/min (>60); PROTEIN TOTAL SERUM 6.4 g/dL (6.0-8.3)
[2016-09-28 10:05] LABS: BASOPHIL# 0.1 X10e3 (0-0.3); BASOPHIL% 1.1 % (0-2.5); EOSINOPHIL# 0.3 X10e3 (0-0.7); EOSINOPHIL% 6.6 % (0.0-7.0); HEMATOCRIT 44.8 % (38.0-50.0); HEMOGLOBIN 14.7 gm/dL (13.0-16.0); LYMPHOCYTE# 1.4 X10e3 (1.0-3.5); LYMPHOCYTE% 27.4 % (17.0-45.0); MEAN CELL VOLUME 85.8 FL (83-96); MEAN CORPUSCULAR HEMOGLOBIN 28.2 PG (28-34); MEAN CORPUSCULAR HGB CONC 32.8 g/dL (30-36); MEAN PLATELET VOLUME 7.9 FL (6.5-11.5); MONOCYTE# 0.5 X10e3 (0-1.0); MONOCYTE% 10.5 % (3.0-12.0); NEUTROPHIL# 2.8 X10e3 (1.5-7.1); NEUTROPHIL% 54.4 % (40-75); PLATELET COUNT 240 X10e3 (140-420); RED BLOOD COUNT 5.22 X10e (3.90-5.60); RED CELL DISTRIBUTION WIDTH 17.1 % (11.0-15.5); WHITE BLOOD COUNT 5.2 X10e3 (4.0-10.5)
[2016-09-28 10:49] LABS: DIFF IND NO
== END 2016-10-01 13:45 | disposition home or self-care (01) | DRG 885 ==
LOC: P1S 18:03
PROVIDERS: Psychiatry & Neurology Psychiatry
DX: F25.0 Schizoaffective disorder, bipolar type (principal); E11.9 Type 2 diabetes mellitus without complications; I10 Essential (primary) hypertension; F19.10 Other psychoactive substance abuse, uncomplicated; F31.9 Bipolar disorder, unspecified
CPT/HCPCS: 80053; 85025